=== PATIENT | female | born 1980 | race African-American/Black ===

== ENCOUNTER 2020-08-17 04:28 | Emergency (ER) | payer SELFPAY ==
[~2020-08-17] VITALS: Ht 167.6 cm; Wt 65.8 kg
--- NOTE | 2020-08-17 04:40 | NUR ---
bibra for c/o unwithnessed seizure episode 15 min [employer]. pt a, ox4, with no c.o pain or discomfort at this time. no sign of incontinence noted. in bed 12 ER, placed on monitor. VSS. seizure precaution in place. will cont to monitor ,
[2020-08-17] MEDS ORDERED: PHENYTOIN EXTENDED RELEASE 100 MG CAPSULE PO ONE ×2 (04:44→05:00)
[2020-08-17 04:48] VITALS: BP 120/76
[2020-08-17] MEDS ORDERED: PHEN100C4 PO (04:58)
--- NOTE | 2020-08-17 06:15 | NUR ---
pt is medically stable for d/c per MD. Patient given Rx and written and verbal discharge instructions. Patient verbalizes understanding of instructions. Patient is ambulatory with steady gait. Refuses offer of [facility] placement. pt had proper clothing on and was provided w/ food.
== END 2020-08-17 06:16 | disposition home or self-care (01) ==
LOC: ER 04:32
DX: R56.9 Unspecified convulsions (principal); Z91.14 Patient's other noncompliance with medication regimen; Z88.0 Allergy status to penicillin; Z79.899 Other long term (current) drug therapy